=== PATIENT | female | born 2000 | race Caucasian/White ===

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

== ENCOUNTER 2019-03-03 11:34 | Emergency (ER) | payer OTHER, MEDICAID ==
[~2019-03-03] VITALS: Ht 157.5 cm; Wt 85.0 kg
[2019-03-03] MEDS ORDERED: ACETAMINOPHEN 500MG TABLET PO ONE (13:15)
[2019-03-03 14:06] LABS: CLARITY URINE CLEAR (CLEAR); COLOR URINE YELLOW (YELLOW); KETONES URINE NEGATIVE (NEGATIVE); LEUKOCYTE ESTERASE URINE 1+ (NEGATIVE); NITRITE URINE NEGATIVE (NEGATIVE); OCCULT BLOOD URINE NEGATIVE (NEGATIVE); PH URINE 7.5 (4.5-8.0); PROTEIN URINE NEGATIVE (NEGATIVE); SPECIFIC GRAVITY URINE 1.015 (1.005-1.030); UROBILINOGEN URINE 0.2 E.U./dL (0.2-1.0)
[2019-03-03 15:21] VITALS: BP 118/74
== END 2019-03-03 15:24 | disposition home or self-care (01) ==
LOC: ER 11:34
DX: O26.891 Other specified pregnancy related conditions, first trimester (principal); R10.9 Unspecified abdominal pain; Z3A.09 9 weeks gestation of pregnancy
CPT/HCPCS: 36415; 84702; 99283

== ENCOUNTER 2019-09-10 13:06 | Inpatient (IN) | payer MEDICAID ==
[~2019-09-10] VITALS: Ht 157.5 cm; Wt 98.9 kg
[2019-09-10] MEDS ORDERED: MISOPROSTOL 100MCG TABLET VG PRN ×2 (13:45→18:00)
[2019-09-10] MEDS ORDERED: DEXT 5%/LR + PITOCIN 20UNITS/L 1,000 ML IV PRN (13:45)
[2019-09-10] MEDS ORDERED: BUTORPHANOL TARTRATE 2 MG/ML VIAL IV PRN (13:45)
[2019-09-10] MEDS ORDERED: LIDOCAINE HCL 1% 20ML VIAL (Pyxis) INJ INFIL PRN (13:45)
[2019-09-10] MEDS ORDERED: CARBOPROST TROMETHAMINE 250 MCG/ML AMPUL IM PRN (13:45)
[2019-09-10] MEDS ORDERED: LABETALOL HCL 5MG/ML VIAL 20ML IV PRN ×3 (13:45)
[2019-09-10] MEDS ORDERED: NALOXONE HCL 0.4 MG/ML 1ML VIAL IM PRN (13:45)
[2019-09-10] MEDS ORDERED: MISOPROSTOL 200MCG TABLET VG PRN (13:45)
[2019-09-10] MEDS ORDERED: HYDRALAZINE 20MG/ML VIAL IV PRN (13:45)
[2019-09-10] MEDS ORDERED: AMPICILLIN 2,000 MG in SODIUM CHLORIDE 0.9% 100 ML IV SCH (14:00)
[2019-09-10] MEDS: LACTATED RINGERS 1,000 ML IV SCH (14:01)
[2019-09-10 14:36] LABS: CHLORIDE 113 mEq/L (98-107)
[2019-09-10 14:42] LABS: CLARITY URINE CLOUDY (CLEAR); COLOR URINE YELLOW (YELLOW); KETONES URINE NEGATIVE (NEGATIVE); LEUKOCYTE ESTERASE URINE 3+ (NEGATIVE); NITRITE URINE NEGATIVE (NEGATIVE); OCCULT BLOOD URINE NEGATIVE (NEGATIVE); PROTEIN URINE 1+ (NEGATIVE); SPECIFIC GRAVITY URINE 1.009 (1.005-1.030); UROBILINOGEN URINE 0.2 E.U./dL (0.2-1.0)
[2019-09-10 14:46] LABS: D-DIMER 1.33 mg/L FEU (<0.50); INR 0.9; PARTIAL THROMBOPLASTIN TIME 26.2 sec (23.4-31.0); PROTHROMBIN TIME 9.9 sec (9.6-11.0)
[2019-09-10 14:52] LABS: BASOPHILS % 0.1 % (0.0-2.0); EOSINOPHILS % 0.1 % (0.0-5.0); HEMATOCRIT. 37.3 % (36.0-48.0); HEMOGLOBIN. 13.4 g/dL (12.0-16.0); LYMPHOCYTES % 10.9 % (20.0-50.0); MEAN CORPUSCULAR HEMOGLOBIN 30.2 pg (28.0-32.0); MEAN CORPUSCULAR VOLUME 84.2 fL (81.0-99.0); MEAN PLATELET VOLUME 11.8 fl (7.4-10.4); MONOCYTES % 4.6 % (2.0-8.0); NEUTROPHILS % 84.3 % (40.0-76.0); PLATELET 162 x1000/uL (130-400); RED BLOOD CELL COUNT 4.43 mill/uL (4.2-5.4); RED CELL DISTRIBUTION WIDTH 14.3 % (11.6-14.6)
[2019-09-10 15:04] LABS: METHADONE URINE SCREEN NEGATIVE (NEGATIVE); OPIATES URINE SCREEN NEGATIVE (NEGATIVE)
[2019-09-10 15:05] LABS: *AMPHETAMINES SCREEN URINE NEGATIVE (NEGATIVE); *BARBITURATES SCREEN URINE NEGATIVE (NEGATIVE); *BENZODIAZEPINES SCREEN URINE NEGATIVE (NEGATIVE); CANNABINOID URINE SCREEN NEGATIVE (NEGATIVE); PHENCYCLIDINE URINE SCREEN NEGATIVE (NEGATIVE)
[2019-09-10 15:06] LABS: *COCAINE SCREEN URINE NEGATIVE (NEGATIVE)
[2019-09-10] MEDS ORDERED: MAGNESIUM 4 G PREMIX 100 ML IV SCH (15:15)
[2019-09-10] MEDS: MAGNESIUM 20 G PREMIX (L & D) 500 ML IV SCH (15:18)
[2019-09-10] MEDS: AMPICILLIN 1,000 MG in SODIUM CHLORIDE 0.9% 50 ML IV SCH (20:53)
[2019-09-10] MEDS ORDERED: ACETAMINOPHEN 325MG TABLET PO NR (21:00)
[2019-09-10] MEDS ORDERED: DEXT 5%/LR + PITOCIN 20UNITS/L 1,000 ML IV SCH (21:00)
[2019-09-10] MEDS ORDERED: DEXT 5%/LACTATED RINGERS 1,000 ML IV SCH (21:00)
[2019-09-11] MEDS: MAGNESIUM 20 G PREMIX (L & D) 500 ML IV SCH ×3 (02:48→13:38)
[2019-09-11] MEDS: AMPICILLIN 1,000 MG in SODIUM CHLORIDE 0.9% 50 ML IV SCH (07:10)
[2019-09-11] MEDS: LACTATED RINGERS 1,000 ML IV SCH ×2 (09:24→17:10)
[2019-09-11] MEDS ORDERED: ROPIVACAINE HCL/PF EPIDURAL 200 ML EPI ONE (10:46)
[2019-09-11] MEDS ORDERED: ROPIVACAINE HCL/PF EPIDURAL 200 ML EPI SCH (11:15)
[2019-09-11] MEDS ORDERED: FENTANYL CITRATE/PF 50MCG/ML 2ML VIAL ONE (13:09)
[2019-09-11] MEDS ORDERED: LIDOCAINE HCL 2%/EPINEPHRINE 1:100,000 20 ML VIAL INFIL ONE (16:06)
[2019-09-11] MEDS ORDERED: DEXT 5%/LR + PITOCIN 20UNITS/L 1,000 ML IV SCH (18:14)
[2019-09-11] MEDS ORDERED: BENZOCAINE/LANOLIN/ALOE VERA SPRAY TOP PRN (18:15)
[2019-09-11] MEDS ORDERED: CARBOPROST TROMETHAMINE 250 MCG/ML AMPUL IM ONE (18:15)
[2019-09-11] MEDS ORDERED: IBUPROFEN 800MG TABLET PO PRN (18:15)
[2019-09-11] MEDS ORDERED: RHO(D) IMMUNE GLOBULIN 300 MCG/SYR IM PRN (18:15)
[2019-09-11] MEDS ORDERED: IBUPROFEN 400MG TABLET PO PRN (18:15)
[2019-09-11 20:20] VITALS: BP 155/86
[2019-09-11 20:50] VITALS: BP 154/88
[2019-09-11 21:20] VITALS: BP 142/88
[2019-09-12] VITALS: BP 140/86
[2019-09-12 04:13] LABS: BASOPHILS % 0.1 % (0.0-2.0); EOSINOPHILS % 0.1 % (0.0-5.0); HEMATOCRIT. 28.8 % (36.0-48.0); HEMOGLOBIN. 10.1 g/dL (12.0-16.0); LYMPHOCYTES % 9.2 % (20.0-50.0); MEAN CORPUSCULAR VOLUME 85.4 fL (81.0-99.0); MEAN PLATELET VOLUME 11.1 fl (7.4-10.4); MONOCYTES % 8.9 % (2.0-8.0); NEUTROPHILS % 81.7 % (40.0-76.0); PLATELET 145 x1000/uL (130-400); RED BLOOD CELL COUNT 3.37 mill/uL (4.2-5.4); RED CELL DISTRIBUTION WIDTH 14.2 % (11.6-14.6)
[2019-09-12 04:27] VITALS: BP 117/63
[2019-09-12] MEDS: MAGNESIUM 20 G PREMIX (L & D) 500 ML IV SCH (04:28)
[2019-09-12 08:00] VITALS: BP 130/79
[2019-09-12] MEDS ORDERED: TETANUS, DIPHTHERIA, PERTUSSIS VAC/PF 0.5ML (>7YR OLD) IM ONE (12:30)
[2019-09-12 14:00] VITALS: BP 130/62
[2019-09-12 20:00] VITALS: BP 132/65
[2019-09-13] VITALS: BP 135/68
[2019-09-13] MEDS ORDERED: IBUP-2030 PO (07:27)
[2019-09-13 08:00] VITALS: BP 112/62
[2019-09-13] MEDS ORDERED: MEASLES,MUMPS&RUBELLA VACCINE 1 VIAL SUBCUT ONE (08:00)
[2019-09-14 20:16] LABS: HEPATITIS B SURFACE ANTIGEN NEGATIVE
== END 2019-09-13 12:30 | disposition home or self-care (01) | DRG 560 ==
LOC: OBSVTOIN 13:06 → 8 EST LDRP 13:06 → 8EST 09-11 20:20
PROVIDERS: ADMIT Obstetrics & Gynecology; ATTEND Obstetrics & Gynecology
PROC: 10E0XZZ Delivery of Products of Conception, External Approach (ICD-10-PCS; principal; 2019-09-11)
PROC: 0W8NXZZ Division of Female Perineum, External Approach (ICD-10-PCS; 2019-09-11)
PROC: 00HU33Z Insertion of Infusion Device into Spinal Canal, Percutaneous Approach (ICD-10-PCS; 2019-09-11)
PROC: 3E0R3BZ Introduction of Anesthetic Agent into Spinal Canal, Percutaneous Approach (ICD-10-PCS; 2019-09-11)
PROC: 10907ZC Drainage of Amniotic Fluid, Therapeutic from Products of Conception, Via Natural or Artificial Opening (ICD-10-PCS; 2019-09-11)
PROC: 3E033VJ Introduction of Other Hormone into Peripheral Vein, Percutaneous Approach (ICD-10-PCS; 2019-09-11)
DX: O14.94 Unspecified pre-eclampsia, complicating childbirth (principal); O13.4 Gestational [pregnancy-induced] hypertension without significant proteinuria, complicating childbirth; Z37.0 Single live birth; Z3A.36 36 weeks gestation of pregnancy; Z82.49 Family history of ischemic heart disease and other diseases of the circulatory system; Z83.3 Family history of diabetes mellitus
CPT/HCPCS: 36415; 80053; 80305; 81003; 83735; 84550; 85025; 85049; 85379; 85384; 86592; 86703; 86762; 86850; 86900; 87340; 90707; 90715; 99281; G0378; J0290; J2590; J2795; J3010; J3475; J3490; J7050; J7121